=== PATIENT | male | born 2000 | race Caucasian/White ===

== ENCOUNTER → 2020-10-03 09:51 | Outpatient (BNVA) | payer OTHER, SELFPAY | PROVIDERS: Visit Provider Internal Medicine | DX: S61.313A Laceration without foreign body of left middle finger with damage to nail, initial encounter (principal); W45.8XXA Other foreign body or object entering through skin, initial encounter; Z23 Encounter for immunization | CPT/HCPCS: 12001; 90715; 99204 ==

== ENCOUNTER → 2020-10-06 11:42 | Outpatient (BNVA) | payer OTHER, SELFPAY | PROVIDERS: Visit Provider Physician Assistant | DX: S61.213D Laceration without foreign body of left middle finger without damage to nail, subsequent encounter (principal); W26.2XXD Contact with edge of stiff paper, subsequent encounter | CPT/HCPCS: 99213 ==

== ENCOUNTER → 2020-10-10 15:37 | Outpatient (BNVA) | payer OTHER, SELFPAY | PROVIDERS: Visit Provider Physician Assistant | DX: S61.213D Laceration without foreign body of left middle finger without damage to nail, subsequent encounter (principal); X58.XXXD Exposure to other specified factors, subsequent encounter | CPT/HCPCS: 99212; 99213 ==